=== PATIENT | male | born 1980 | race Two or more races ===

== ENCOUNTER 2018-08-30 15:13 | Emergency (ER) | payer SELFPAY ==
[~2018-08-30] VITALS: Ht 162.6 cm; Wt 81.0 kg
[2018-08-30 19:40] VITALS: BP 210/141
[2018-08-30] MEDS ORDERED: AMLODIPINE 10MG TABLET PO ONE (19:45)
[2018-08-30] MEDS ORDERED: LOSARTAN POTASSIUM 50 MG TABLET PO ONE (19:45)
[2018-08-30 20:10] LABS: BASOPHILS % 0.3 % (0.0-2.0); EOSINOPHILS % 2.3 % (0.0-5.0); HEMATOCRIT. 56.7 % (42.0-52.0); LYMPHOCYTES % 23.3 % (20.0-50.0); MEAN CORPUSCULAR HEMOGLOBIN 29.3 pg (28.0-32.0); MEAN CORPUSCULAR VOLUME 82.8 fL (80.0-94.0); MEAN PLATELET VOLUME 7.8 fl (7.4-10.4); MONOCYTES % 7.5 % (2.0-8.0); NEUTROPHILS % 66.6 % (40.0-76.0); PLATELET 328 x1000/uL (130-400); RED BLOOD CELL COUNT 6.85 mill/uL (4.7-6.1); RED CELL DISTRIBUTION WIDTH 13.7 % (11.6-14.6)
[2018-08-30 20:12] LABS: CHLORIDE 104 mEq/L (98-107)
== END 2018-08-30 21:13 | disposition left against medical advice (07) ==
LOC: ER 15:13
DX: I16.0 Hypertensive urgency (principal); I10 Essential (primary) hypertension
CPT/HCPCS: 36415; 93005; 99284